=== PATIENT | male | born 1970 | race Caucasian/White ===

== ENCOUNTER 2022-03-08 06:22 | Day surgery (SDC) | payer OTHER ==
[~2022-03-08] VITALS: Ht 185.4 cm; Wt 94.3 kg
[2022-03-08] MEDS ORDERED: fentaNYL citrate 0.05 MG/ML VIAL ONE (07:34)
[2022-03-08] MEDS: fentaNYL citrate 0.05 MG/ML VIAL IVP ONE (08:32)
[2022-03-08] MEDS: LIDOCAINE 2% 100 MG/5 ML UJET TP ONE (08:40)
== END 2022-03-08 09:21 | disposition home or self-care (01) ==
LOC: MDS 06:22 → MMU 06:23 → MDS 09:21
PROVIDERS: ATTEND Internal Medicine Gastroenterology
DX: Z12.11 Encounter for screening for malignant neoplasm of colon (principal); D12.8 Benign neoplasm of rectum; K57.30 Diverticulosis of large intestine without perforation or abscess without bleeding; Z86.718 Personal history of other venous thrombosis and embolism; Z79.01 Long term (current) use of anticoagulants; Z79.899 Other long term (current) drug therapy; Z20.822 Contact with and (suspected) exposure to COVID-19
CPT/HCPCS: 45385; 87426; J3010